=== PATIENT | female | born 1980 | race Caucasian/White ===

== ENCOUNTER 2016-06-27 12:54 | Emergency (ER) | payer OTHER ==
[2016-06-27 13:02] VITALS: BMI 24.9
--- NOTE | 2016-06-27 14:19 | PDOC ---
History of Present Illness - General Chief Complaint: Cold Symptoms Stated Complaint: 25 WKS , CONGESTED, HEADACHES Time Seen by Provider: 06/27/16 13:56 History Source: Patient Exam Limitations: No Limitations - History of Present Illness Initial Comments: 06/27/16 14:15 Chief complaint: Nasal congestion, dry cough, left ear clogged, decreased appetite fever and body aches History of present illness: She is a 35-year-old female 25 weeks here today complaining of nasal congestion, with sensation of left ear being clogged , dry cough, and body aches for 4 days. Patient also reports decreased appetite. Patient has sore throat for the first 3 days. She denies any shortness of Difficulty breathing or swallowing. Patient reports that she had a fever last night of 100.4. Patient denies being around anyone that has been ill or any recent travel. She had reported that she did not feel the baby move since last night however she started to feel the baby move since being here however would like to be checked to make sure everything is okay with the baby. Patient denies any other symptoms. She did not have influenza vaccine. Patient' s estimated due date is 10/05/2016. Pt. is a 2 , para 2 06/27/16 15:03 06/27/16 15:45 06/27/16 15:58 Timing/Duration: getting worse Severity: moderate Associated Symptoms: reports: cough (dry), fever/chills, other (nausea this morning, body ache, nasal congestion') Past History - Past Medical History Allergies/Adverse Reactions: Allergies Allergy/AdvReac Type Severity Reaction Status Date / Time No Known Allergies Allergy Verified 06/27/16 13:02 Home Medications: Ambulatory Orders NK [No Known Home Medication] 06/27/16 Asthma: No Cancer: No Cardiac Disorders: No Diabetes: No HTN: Yes Seizures: No Thyroid Disease: No - Psycho/Social/Smoking Cessation Hx Suicidal Ideation: No Smoking History: Never smoked Have you smoked in the past 12 months: No Hx Alcohol Use: No Drug/Substance Use Hx: No Hx Substance Use Treatment: No Review of Systems - Review of Systems Able to Perform ROS?: Yes Constitutional: Yes: Chills, Fever, Loss of Appetite HEENTM: Yes: Nose Congestion, Hearing Loss (left ear clogged sensation ) Respiratory: Yes: Cough. No: Shortness of Breath, SOB with Exertion, SOB at Rest, Stridor, Wheezing, Productive cough Cardiac (ROS): No: Symptoms Reported ABD/GI: Yes: Nausea (this morning ) : No: Symptoms Reported Musculoskeletal: Yes: Other (generalized bodyaches) Integumentary: No: Symptoms Reported Neurological: No: Symptoms reported *Physical Exam - Vital Signs Last Vital Signs Temp Pulse Resp BP Pulse Ox 98.5 F 103 H 20 127/75 98 06/27/16 12:59 06/27/16 12:59 06/27/16 12:59 06/27/16 12:59 06/27/16 12:59 - Physical Exam General Appearance: Yes: Appropriately Dressed HEENT: positive: TMs Normal (b/l ), Nasal Congestion, Rhinorrhea (clear b/l ), Hearing Grossly Normal. negative: Pharyngeal Erythema, Tonsillar Exudate, Tonsillar Erythema, Sinus Tenderness Neck: negative: Lymphadenopathy (R), Lymphadenopathy (L) Respiratory/Chest: positive: Lungs Clear, Normal Breath Sounds. negative: Chest Tender, Respiratory Distress Cardiovascular: positive: Regular Rhythm, Regular Rate, S1, S2 Integumentary: positive: Normal Color Neurologic: positive: Alert, Normal Response, Responsive Medical Decision Making - Medical Decision Making 06/27/16 14:18 She is a 35-year-old female 25 weeks here today complaining of nasal congestion, with sensation of left ear being clogged, dry cough, and body aches for 4 days. Patient also reports decreased appetite. Patient has sore throat for the first 3 days. She denies any shortness of Difficulty breathing or swallowing. Patient reports that she had a fever last night of 100.4. Patient denies being around anyone that has been ill or any recent travel. She had reported that she did not feel the baby move since last night however she started to feel the baby move since being here however would like to be checked to make sure everything is okay with the baby. Patient denies any other symptoms. She did not have influenza vaccine. Pt. is followed by Dr. Pelaez. 06/27/16 14:21 Rule out influenza a or B Plan: influenza A & B + for A since pt. has had symptoms for 4 days will not treat with Tamiflu 06/27/16 15:32 lab had to be called had not gotten specimen stuck in shoot 06/27/16 15:45 influenza A Positive negative for B 06/27/16 15:59 She Is requesting to go upstairs to make sure that the baby is okay since she felt decreased movements today however she did feel movement while here in fast track take zrytrec as needed for nasal congestion pt to take acetaminophen as needed for bodyaches and fever spoke to Bibi from labor and delivery pt will go up for monitoring with mask on 06/27/16 16:01 06/27/16 16:08 *DC/Admit/Observation/Transfer Diagnosis at time of Disposition: Influenza A - Discharge Dispostion Condition at time of disposition: Stable - Patient Instructions Additional Instructions: Drink a lot of fluids and rest Take acetaminophen as needed as directed by soa integration developer for body aches or fever May take [id number] cough preparation on the safe in May take zyrtex as needed for nasal congestion Return to emergency room if any difficulty breathing or swallowing or any vaginal bleeding Patient voiced understanding of discharge instructions all questions were answered - Intra-facility transfer Intra-facility transfer: Labor & Delivery
[2016-06-27 17:43] VITALS: BP 125/76; PULSE 102; TEMP 99
== END 2016-06-27 17:54 | disposition home or self-care (01) ==
LOC: JERFT 12:54
DX: O98.512 Other viral diseases complicating pregnancy, second trimester (principal); J09.X2 Influenza due to identified novel influenza A virus with other respiratory manifestations; O16.2 Unspecified maternal hypertension, second trimester; Z3A.25 25 weeks gestation of pregnancy
CPT/HCPCS: 87804; 99281-25